=== PATIENT | female | born 1935 | race Two or more races ===

== ENCOUNTER 2018-01-20 14:38 | Outpatient (CLI) | payer OTHER | END 2018-01-20 14:45 | disposition home or self-care (01) | LOC: RAD 14:38 | DX: M15.8 Other polyosteoarthritis (principal) ==

== ENCOUNTER 2018-05-28 13:38 | Outpatient (CLI) | payer OTHER | END 2018-05-28 13:56 | disposition home or self-care (01) | LOC: RAD 13:38 | DX: M54.89 Other dorsalgia (principal); G45.8 Other transient cerebral ischemic attacks and related syndromes | CPT/HCPCS: 70551 ==